=== PATIENT | female | born 1950 | race Caucasian/White ===

== ENCOUNTER → 2019-08-30 | Outpatient (CLI) | payer MEDICARE, OTHER ==
[~2019-08-30] MED LIST: ACET500; ASPI325; ATOR40TA; BRINTELLIX10 MG; BUSP5; IBUP400
== END | disposition home or self-care (01) ==
LOC: PLD 08-29 10:17 → LAB SHORT 08-29 10:17 → PLD 11:00
DX: D22.121 Melanocytic nevi of left upper eyelid, including canthus (principal)
CPT/HCPCS: 88305

== ENCOUNTER 2023-02-08 06:13 | Day surgery (SDC) | payer OTHER ==
[~2023-02-08] VITALS: Ht 162.6 cm; Wt 65.1 kg
[2023-02-08] MEDS ORDERED: AMIT50 PO (06:53)
[2023-02-08] MEDS ORDERED: Prozac40 MG PO (06:54)
[2023-02-08] MEDS ORDERED: Norco 7.5-3251 EACH PO (06:54)
[2023-02-08] MEDS ORDERED: CELE200 PO (06:54)
[2023-02-08] MEDS ORDERED: UBID10 PO (06:55)
--- NOTE | 2023-02-08 07:37 | NUR ---
02/08/23 0737 Shyla Marinelli BLOCK COMPLETED BY DR MARTIN, PT TOLERATED WELL.
--- NOTE | 2023-02-08 08:25 | NUR ---
02/08/[address] 1MG OF EPI (1MG/ML) VERIFIED AND ADDED TO THE FIRST BAG OF FLUID [facility]
[2023-02-08 10:14] VITALS: BP 159/92
--- NOTE | 2023-02-08 10:42 | NUR ---
02/08/23 1042 Whit Hawk PT WAS ABLE TO HAVE ONE DOSE OF PAIN MEDICATIO BEFORE LEAVING. PT WANTED TO STAY AHEAD OF THE PAIN AND OPTED TO TAKE THE DOSE AT 1040.
== END 2023-02-08 10:52 | disposition home or self-care (01) ==
LOC: ORSCSDS 06:13
PROVIDERS: Orthopaedic Surgery
PROC: 0RNJ4ZZ Release Right Shoulder Joint, Percutaneous Endoscopic Approach (ICD-10-PCS; principal; 2023-02-08 07:30)
PROC: 0LQ14ZZ Repair Right Shoulder Tendon, Percutaneous Endoscopic Approach (ICD-10-PCS; principal; 2023-02-08 07:30)
DX: M75.111 Incomplete rotator cuff tear or rupture of right shoulder, not specified as traumatic (principal); M75.41 Impingement syndrome of right shoulder; E78.5 Hyperlipidemia, unspecified; E03.9 Hypothyroidism, unspecified; Z87.891 Personal history of nicotine dependence; M79.7 Fibromyalgia; F41.9 Anxiety disorder, unspecified; F32.A Depression, unspecified; Z79.899 Other long term (current) drug therapy; Z79.82 Long term (current) use of aspirin
CPT/HCPCS: A9270; C1713; J0171; J0690; J1100; J1885; J2001; J2250; J2405; J2704; J3010; J7120

== ENCOUNTER 2024-10-06 11:16 | Day surgery (SDC) | payer OTHER ==
[~2024-10-06] VITALS: Ht 162.6 cm; Wt 73.0 kg
[~2024-10-06 11:16] MED LIST changes: +AMIT50 PO; +Bupivacaine 0.5% W/EPI 1:200000 SDV 30 ML Vial ONE; +CELE200 PO; +Lactated Ringer's 1,000 ML IV ONE; +Lidocaine HCl 2% 10 ML SDA ONE; +Norco 7.5-3251 EACH PO; +Prozac40 MG PO; +UBID10 PO
[2024-10-06] MEDS ORDERED: Clindamycin 900mg in D5W 50ML 50 ML IV ONE (11:44)
[2024-10-06] MEDS ORDERED: Lactated Ringer's 1,000 ML IV ONE (11:54)
[2024-10-06] MEDS ORDERED: TERB250 PO (11:57)
[2024-10-06] MEDS ORDERED: LOSARTAN POTASS25 M2 PO (11:58)
[2024-10-06] MEDS ORDERED: BUPR100 PO (11:58)
[2024-10-06] MEDS ORDERED: OXYCODONE-ACET1 EAC3 PO (12:00)
[2024-10-06] MEDS ORDERED: propofoL 40 ML IV ONE (12:11)
[2024-10-06] MEDS ORDERED: FentaNYL Citrate 50 MCG/ML 2 ML Injection ONE ×2 (12:13→12:43)
[2024-10-06] MEDS ORDERED: Midazolam HCl 1MG / ML 2ML Vial ONE (12:44)
[2024-10-06 14:31] VITALS: BP 123/70
== END 2024-10-06 14:28 | disposition home or self-care (01) ==
LOC: ORSCSDS 11:16
PROVIDERS: Podiatrist Foot & Ankle Surgery
PROC: 0QBQ0ZZ Excision of Right Toe Phalanx, Open Approach (ICD-10-PCS; principal; 2024-10-06 12:45)
PROC: 0QBN0ZZ Excision of Right Metatarsal, Open Approach (ICD-10-PCS; principal; 2024-10-06 12:45)
PROC: 0QSP04Z Reposition Left Metatarsal with Internal Fixation Device, Open Approach (ICD-10-PCS; principal; 2024-10-06 12:45)
DX: M79.672 Pain in left foot (principal); M20.5X2 Other deformities of toe(s) (acquired), left foot; E78.5 Hyperlipidemia, unspecified; F41.9 Anxiety disorder, unspecified; F32.A Depression, unspecified; Z79.82 Long term (current) use of aspirin; Z79.899 Other long term (current) drug therapy
CPT/HCPCS: J2003; J2250; J2704; J3010; J7120